=== PATIENT | male | born 1940 | race Caucasian/White ===

== ENCOUNTER 2018-06-09 21:43 | Emergency (ER) | payer MEDICARE ==
[~2018-06-09] VITALS: Ht 170.2 cm; Wt 69.5 kg
--- NOTE | 2018-06-09 22:06 | NUR ---
PT LAVONNE MARTÍNEZ - PT AT HOME HAVING A BM OF DIARRHEA, STATED HE SLUMPED OVER ON TOILET AND SLID OFF TOILET, LANDED ON BACK. PT STATED HE WOKE UP ON HIS BACK, GOT UP AND SAT BACK ON THE TOILET TO RESUME HIS BM. EMS STATED ON ARRIVAL PT BP WAS 67/41 WHILE PT ON FLOOR WITH HR OF 60. ONCE IN CHAIR BP NORMALIZED WITH HR OF 40. PT GIVEN FLUIDS IN TRANSIT. PT DENIED ANY CHEST PAIN AND DIZZINESS AT TIME OF EVENT AND CURRENTLY. PT ON ALL MONITORS, BILAT BEDRAILS UP. PT IN HOSPITAL GOWN. FAMILY AT BEDSIDE. PT AWAITING ERP EVAL. Addendum: 06/09/18 at 2211 by DAMASO PT SINUS KELLEN WITH 1ST DEGREE AV BLOCK ON EMS TELE MONITOR.
[2018-06-09 22:52] LABS: BASOPHILS # (AUTO) 0.02 x10^3/uL (0-0.1); BASOPHILS % (AUTO) 0 % (0-1); EOSINOPHILS # (AUTO) 0.23 x10^3/uL (0-0.4); EOSINOPHILS % (AUTO) 3 % (1-7); LYMPHOCYTES # (AUTO) 1.56 x10^3/uL (1-3.4); LYMPHOCYTES % (AUTO) 22 % (22-44); MD NO; MEAN CORPUSCULAR HGB CONC 34.6 g/dL (33.2-36.2); MEAN CORPUSCULAR VOLUME 95.3 fL (81-97); MEAN PLATELET VOLUME 7.5 fL (7.4-10.4); MONOCYTES % (AUTO) 9 % (2-9); NEUTROPHILS # (AUTO) 4.56 x10^3/uL (1.8-6.8); NEUTROPHILS % (AUTO) 66 % (42-75); PLATELET COUNT 242 x10^3/uL (130-400); RED BLOOD COUNT 3.78 x10^6/uL (4.38-5.82); RED CELL DISTRIBUTION WIDTH 13.3 % (9.4-14.8)
[2018-06-09 23:03] LABS: ALANINE AMINOTRANSFERASE 40 U/L (12-78); ALBUMIN 3.5 g/dL (3.4-5.0); ANION GAP 10 mmol/L (5-15); CALCIUM 8.2 mg/dL (8.5-10.1); CHLORIDE 102 mmol/L (98-107); CREATININE 0.66 mg/dL (0.7-1.3)
[2018-06-09 23:07] LABS: ALKALINE PHOSPHATASE 77 U/L (45-117); BILIRUBIN,TOTAL 0.3 mg/dL (0.2-1.0); TOTAL PROTEIN 6.4 g/dL (6.4-8.2); TROPONIN I < 0.015 ng/mL (0.000-0.045)
--- NOTE | 2018-06-10 00:05 | NUR ---
PT ABLE TO ABMULATE STEADILY IN HALLS FOR OVER 100 FT. PT DID NOT REPORT ANY DIZZINESS, NO WEAKNESS, NOR NAUSEA WHILE UP WALKING.
[2018-06-10 00:17] VITALS: BP 158/80
== END 2018-06-10 00:18 | disposition home or self-care (01) ==
LOC: ED 06-10 00:10
DX: R55 Syncope and collapse (principal); Z95.0 Presence of cardiac pacemaker
CPT/HCPCS: 36415; 71045; 80053; 84484; 85025; 93005; 99284

== ENCOUNTER 2019-05-19 10:54 | Emergency (ER) | payer MEDICARE ==
[~2019-05-19] VITALS: Ht 170.2 cm; Wt 70.8 kg
[~2019-05-19 10:54] MED LIST: APIX5TAB PO; ASCO10004 PO; CHOL2000 PO; CYAN500T14 PO; FLEC50TA25 PO; METO25TA35 PO; MULT-508 PO
--- NOTE | 2019-05-19 11:35 | NUR ---
TO ROOM FROM LOBBY. NAD.
[2019-05-19] MEDS ORDERED: NEOSPORIN OINT. PKT 1 PACKET ONE ×2 (11:56→12:48)
--- NOTE | 2019-05-19 12:06 | NUR ---
TASK RN: PT TO ROOM 11 W/ C/O MGLF TODAY WHILE WALKING OFF THE CURB AND PT FELL ONTO L SIDE OF FACE. PT DENIES ANY LIGHTHEADEDNESS/DIZZINESS/NAUSEA/VOMITING. PT AOX4. NEURO INTACT. IS CURRENTLY ON ELIQUIS 5 MG DAILY. PT RESTING ON GURMARIELY. CHRISTINA. VSS.
[2019-05-19 13:39] VITALS: BP 169/82
--- NOTE | 2019-05-19 13:39 | NUR ---
report received from JIMMY Farris. pt's wound care completed by EDT. pt given dc instructions. MARILEE Roe aware of bp recheck at 169/82, MD ya'boyd dc. pt amb to dc desk with steady gait, blas.
[2019-06-22] MEDS ORDERED: ASCO-96 PO (12:14)
[2019-06-22] MEDS ORDERED: CHOL10003 PO (12:14)
[2019-06-22] MEDS ORDERED: METO25TA35 PO (12:14)
[2019-06-22] MEDS ORDERED: AMOX-291 PO (12:14)
[2019-06-22] MEDS ORDERED: APIX5TAB PO (12:14)
[2019-06-22] MEDS ORDERED: FLEC100T PO (12:14)
== END 2019-05-19 13:40 | disposition home or self-care (01) ==
LOC: ED 12:30
DX: S05.12XA Contusion of eyeball and orbital tissues, left eye, initial encounter (principal); S60.512A Abrasion of left hand, initial encounter; I48.91 Unspecified atrial fibrillation; W10.1XXA Fall (on)(from) sidewalk curb, initial encounter; Y93.89 Activity, other specified; Y92.89 Other specified places as the place of occurrence of the external cause; Y99.8 Other external cause status
CPT/HCPCS: 70450; 93005; 99284

== ENCOUNTER 2019-06-21 11:12 | Outpatient (CLI) | payer MEDICARE ==
[2019-06-21] MEDS ORDERED: OMNIPAQUE 350 MG/ML, 150 ML BOTTLE ONE (16:47)
[2019-06-22] MEDS ORDERED: ASCO-96 PO (12:14)
[2019-06-22] MEDS ORDERED: APIX5TAB PO (12:14)
[2019-06-22] MEDS ORDERED: CHOL10003 PO (12:14)
[2019-06-22] MEDS ORDERED: FLEC100T PO (12:14)
[2019-06-22] MEDS ORDERED: AMOX-291 PO (12:14)
[2019-06-22] MEDS ORDERED: METO25TA35 PO (12:14)
== END 2019-06-21 23:59 | disposition home or self-care (01) ==
LOC: CFH 11:12
PROVIDERS: ATTEND Internal Medicine Cardiovascular Disease
DX: Z01.818 Encounter for other preprocedural examination (principal); I48.91 Unspecified atrial fibrillation
CPT/HCPCS: 71046; 75572; Q9967

== ENCOUNTER 2019-06-23 06:21 | Observation (INO) | payer MEDICARE ==
[2019-06-22 11:58] VITALS: BP 125/67
[2019-06-22 12:44] LABS: BASOPHILS # (AUTO) 0.04 x10^3/uL (0-0.1); BASOPHILS % (AUTO) 1 % (0-1); EOSINOPHILS # (AUTO) 0.11 x10^3/uL (0-0.4); EOSINOPHILS % (AUTO) 2 % (1-7); LYMPHOCYTES % (AUTO) 27 % (22-44); MD NO; MEAN CORPUSCULAR HEMOGLOBIN 33.3 pg (27.5-34.5); MEAN CORPUSCULAR HGB CONC 33.5 g/dL (33.2-36.2); MEAN CORPUSCULAR VOLUME 99.3 fL (81-97); MEAN PLATELET VOLUME 7.7 fL (7.4-10.4); MONOCYTES # (AUTO) 0.74 x10^3/uL (0.2-0.8); MONOCYTES % (AUTO) 13 % (2-9); NEUTROPHILS # (AUTO) 3.43 x10^3/uL (1.8-6.8); NEUTROPHILS % (AUTO) 58 % (42-75); PLATELET COUNT 343 x10^3/uL (130-400); RED BLOOD COUNT 4.18 x10^6/uL (4.38-5.82); RED CELL DISTRIBUTION WIDTH 13.4 % (9.4-14.8)
[2019-06-22 12:47] LABS: ANION GAP 6 mmol/L (5-15); CALCIUM 9.5 mg/dL (8.5-10.1); CHLORIDE 107 mmol/L (98-107)
[2019-06-22 12:48] LABS: CREATININE 0.87 mg/dL (0.7-1.3)
[~2019-06-23] VITALS: Ht 170.2 cm; Wt 67.0 kg
[~2019-06-23 06:21] MED LIST changes: +AMOX-291 PO; +ASCO-96 PO; +CHOL10003 PO; +FLEC100T PO
[2019-06-23] MEDS ORDERED: SODIUM CHLORIDE 0.9% 1,000 ML IV SCH ×2 (06:28→06:30)
[2019-06-23] MEDS ORDERED: MIDAZOLAM 1 MG/ML, 2ML ONE (08:06)
[2019-06-23] MEDS ORDERED: FENTANYL PF 250 MCG/5ML ONE (08:06)
[2019-06-23] MEDS ORDERED: LIDOCAINE 1%, 20ML ONE (08:09)
[2019-06-23] MEDS ORDERED: SUCCINYLCHOLINE 20 MG/ML, 10ML ONE (08:16)
[2019-06-23] MEDS ORDERED: EPHEDRINE 50 MG/ML, 1ML ONE (08:16)
[2019-06-23] MEDS ORDERED: VASOPRESSIN 20 UNIT/ML, 1ML ONE (08:57)
[2019-06-23] MEDS ORDERED: HEPARIN 1,000 UNITS/ML, 10ML ONE ×3 (08:58→10:46)
[2019-06-23] MEDS ORDERED: PROPOFOL 10 MG/ML, 20ML ONE (10:46)
[2019-06-23] MEDS ORDERED: ROCURONIUM 10MG/ML,5ML ONE (10:46)
[2019-06-23] MEDS ORDERED: ONDANSETRON 2MG/ML, 2ML ONE ×2 (10:46)
[2019-06-23] MEDS ORDERED: DEXAMETHASONE 4 MG/ML, 1ML ONE ×2 (10:46)
[2019-06-23] MEDS ORDERED: APIXABAN 5 MG TABLET PO SCH (11:00)
[2019-06-23] MEDS ORDERED: AMOXICILLIN 500 MG CAPSULE PO SCH (11:00)
[2019-06-23] MEDS ORDERED: ACETAMINOPHEN 325 MG TABLET PO PRN ×2 (11:00→11:30)
[2019-06-23] MEDS ORDERED: LABETALOL 5MG/ML, 20ML IV PRN (11:30)
[2019-06-23] MEDS ORDERED: DIAZEPAM 5 MG/ML, 2ML IVPush PRN (11:30)
[2019-06-23] MEDS ORDERED: HALOPERIDOL 5 MG/ML IV PRN (11:30)
[2019-06-23] MEDS ORDERED: MEPERIDINE/PF 25MG/ML,1ML IVPush PRN (11:30)
[2019-06-23] MEDS ORDERED: EPHEDRINE 50 MG/ML, 1ML IVPush PRN (11:30)
[2019-06-23] MEDS ORDERED: ONDANSETRON 2MG/ML, 2ML IV PRN (11:30)
[2019-06-23] MEDS ORDERED: MIDAZOLAM 1 MG/ML, 2ML IV PRN (11:30)
[2019-06-23] MEDS ORDERED: hydrALAzine 20 MG/ML, 1ML IV PRN (11:30)
[2019-06-23] MEDS ORDERED: FENTANYL PF 100 MCG/2ML IV PRN (11:30)
[2019-06-23] MEDS ORDERED: OXYcodone 5 MG/5 ML ORAL.SOL UDC PO PRN (11:30)
[2019-06-23] MEDS ORDERED: PROMETHAZINE 12.5 MG SUPP PR PRN (11:30)
[2019-06-23] MEDS ORDERED: PROMETHAZINE 25 MG/ML, 1ML IV PRN (11:30)
[2019-06-23] MEDS ORDERED: HYDROmorphone 2 MG/ML, 1ML IVPush PRN (11:30)
[2019-06-23] MEDS ORDERED: ONDANSETRON ODT 8 MG PO PRN (11:30)
[2019-06-23] MEDS ORDERED: ALBUTEROL SULFATE 2.5 MG/3 ML NPPB PRN (11:30)
[2019-06-23] MEDS: APIXABAN 5 MG TABLET PO SCH ×2 (11:36→20:45)
[2019-06-23] MEDS ORDERED: APIXABAN 5 MG TABLET ONE (11:37)
[2019-06-23 13:25] VITALS: BP 131/74
[2019-06-23 20:38] VITALS: BP 100/49
[2019-06-23] MEDS: FLECAINIDE 100MG TABLET PO SCH (20:45)
[2019-06-23] MEDS: METOPROLOL TARTRATE 25 MG TAB PO SCH (20:46)
[2019-06-24 00:20] VITALS: BP 126/69
[2019-06-24] MEDS ORDERED: ASCORBIC ACID 500 MG TABLET PO SCH (09:00)
[2019-06-24] MEDS ORDERED: CHOLECALCIFEROL 1,000 UNIT TABLET PO SCH (09:00)
[2019-06-24] MEDS ORDERED: MULTIVITAMIN 1 TABLET PO SCH (09:00)
[2019-06-24] MEDS ORDERED: CYANOCOBALAMIN 1,000 MCG TABLET PO SCH (09:00)
[2019-06-24] MEDS: APIXABAN 5 MG TABLET PO SCH (09:05)
[2019-06-24 09:21] VITALS: BP 121/69
[2019-06-24] MEDS: METOPROLOL TARTRATE 25 MG TAB PO SCH (09:24)
[2019-06-24] MEDS: FLECAINIDE 100MG TABLET PO SCH (09:25)
[2019-06-24] MEDS ORDERED: APIX5TAB PO (10:35)
== END 2019-06-24 12:08 | disposition home or self-care (01) ==
LOC: CACL 06:21 → ORIP 10:54 → 5SO 12:23 → DCLOUNGE 06-24 11:54
PROVIDERS: ADMIT Internal Medicine Cardiovascular Disease; ATTEND Internal Medicine Cardiovascular Disease
DX: I48.91 Unspecified atrial fibrillation (principal); E78.5 Hyperlipidemia, unspecified; M17.10 Unilateral primary osteoarthritis, unspecified knee; Z79.01 Long term (current) use of anticoagulants; Z79.899 Other long term (current) drug therapy
CPT/HCPCS: 36415; 71046; 80048; 85025; 85347; 93005; 93308; 93312; 93321; 93325; 93613; 93656; 93662; C1730; C1732; C1759; C1766; C1893; C1894; G0378; J0330; J1100; J1644; J2250; J2405; J2704; J3010; J3490

== ENCOUNTER → 2021-02-05 | Outpatient (CLI) | payer MEDICARE ==
[~2021-02-05] MED LIST changes: +ASCO100018 PO; -ASCO10004 PO
[2021-02-05 12:44] LABS: MICROSCOPIC NOT IND
[2021-02-05 12:54] LABS: ANION GAP 4 mmol/L (5-15); CALCIUM 9.1 mg/dL (8.5-10.1); CHLORIDE 107 mmol/L (98-107)
== END | disposition home or self-care (01) ==
LOC: LAB 12:13
PROVIDERS: ATTEND Family Medicine
DX: E87.1 Hypo-osmolality and hyponatremia (principal); D53.9 Nutritional anemia, unspecified; R82.4 Acetonuria
CPT/HCPCS: 36415; 80048; 81003; 82525